=== PATIENT | female | born 1965 | race Caucasian/White ===

== ENCOUNTER 2025-07-11 07:58 | Day surgery (SDC) | payer OTHER ==
[2025-07-11] MEDS: Indocyanine Green 25 MG SDV IV ONE (08:18)
[2025-07-11 08:21] LABS: PLATELET COUNT,PLT 224.0 K/uL (130-375); RED BLOOD CELL COUNT 4.53 M/uL (3.77-5.24); WHITE BLOOD CELL COUNT,WBC 6.8 K/uL (3.2-11.0)
[2025-07-11] MEDS ORDERED: fentaNYL 250 MCG/5 ML SDV ONE (08:29)
[2025-07-11] MEDS ORDERED: Dexamethasone 4 MG/ML SDV ONE (08:30)
[2025-07-11] MEDS ORDERED: Propofol 200 MG/20 ML SDV ONE (08:30)
[2025-07-11] MEDS ORDERED: Ondansetron 4 MG/2 ML SDV ONE (08:30)
[2025-07-11 08:50] LABS: A/G RATIO 1.3 (1.2-2.2); ALANINE AMINOTRANSFERASE,ALT 29 U/L (12-78); ASPARTATE AMNIOTRANSFERASE,AST 21 U/L (15-37); BILIRUBIN TOTAL 1.5 mg/dL (0.2-1.0); BLOOD UREA NITROGEN,BUN 23 mg/dL (7-18); CARBON DIOXIDE,CO2 33 mmol/L (21-32); CHLORIDE,CL 103 mmol/L (100-108); CREATININE 0.8 mg/dL (0.6-1.0); EST CRCL DRUG DOSING (CG) 61.09 mL/min; ESTIMATED GFR 84 mL/min (>60); GLUCOSE RANDOM 103 mg/dL (74-106); POTASSIUM,K 3.8 mmol/L (3.6-5.2); PROTEIN TOTAL,TP 7.6 g/dL (6.4-8.2); SODIUM,NA 142 mmol/L (140-148)
[2025-07-11] MEDS: metroNIDAZOLE/Normal Saline 500 MG in Premix Bag 1 BAG IV ONE (08:55)
[2025-07-11] MEDS ORDERED: Ketorolac 30 MG/ML SDV ONE (09:10)
== END 2025-07-11 13:07 | disposition home or self-care (01) ==
LOC: JP.SDS 07:58
PROVIDERS: ATTEND Surgery
DX: K81.1 Chronic cholecystitis (principal); I10 Essential (primary) hypertension; Z79.82 Long term (current) use of aspirin; Z79.899 Other long term (current) drug therapy
CPT/HCPCS: 00790; 36415; 47562; 80053; 85027; 88304; J0131; J0169; J0665; J0690; J1100; J1836; J1885; J2405; J2704; J2795; J3010; J7030; J3490